=== PATIENT | female | born 1940 | race African-American/Black ===

== ENCOUNTER 2020-06-21 14:36 | Emergency (ER) | payer OTHER ==
[2020-06-21 14:50] VITALS: TEMP 98.3; BMI 23.9
[2020-06-21 15:41] LABS: BASO % 0.7 % (0-2.0); EOS % 0.5 % (0-4.5); HEMATOCRIT 39.5 % (32.4-45.2); HEMOGLOBIN 12.9 GM/dL (10.7-15.3); LYMPH % 31.8 % (8-40); MCH 28.4 pg (25.7-33.7); MCHC 32.6 g/dl (32.0-36.0); MEAN CELL VOLUME 87.1 fl (80-96); MEAN PLT VOLUME 7.5 fl (7.5-11.1); MONO % 7.7 % (3.8-10.2); NEUT % 59.3 % (42.8-82.8); PLATELET COUNT 319 K/MM3 (134-434); RBC 4.53 M/mm3 (3.60-5.2); RDW 13.7 % (11.6-15.6); WHITE BLOOD COUNT 5.6 K/mm3 (4.0-10.0)
[2020-06-21 15:56] LABS: CHLORIDE 101 mmol/L (98-107); SODIUM 137 mmol/L (136-145)
[2020-06-21 15:58] LABS: ANION GAP 9 MMOL/L (8-16); BLOOD UREA NITROGEN 9.3 mg/dL (7-18); CALCIUM 9.5 mg/dL (8.5-10.1); CO2 28 mmol/L (21-32); GLUCOSE,RANDOM 108 mg/dL (74-106)
[2020-06-21 16:01] LABS: CREATININE 0.7 mg/dL (0.55-1.3); SGOT/AST 18 U/L (15-37); SGPT/ALT 18 U/L (13-61)
[2020-06-21 16:03] LABS: BILIRUBIN,TOTAL 0.3 mg/dL (0.2-1); TOT PROT 7.8 g/dl (6.4-8.2)
[2020-06-21 16:04] LABS: ALK PHOS 78 U/L (45-117)
[2020-06-21 17:42] LABS: EPI CELLS 7 /uL (0-25.1); HYALINE CASTS 0 /uL (0-3.1); URINE APPEARANCE CLEAR; URINE BACTERIA 241 /uL (0-1359); URINE BILIRUBIN NEGATIVE (NEGATIVE); URINE COLOR YELLOW; URINE GLUCOSE (UA) NEGATIVE (NEGATIVE); URINE KETONE NEGATIVE (NEGATIVE); URINE LEUK ESTERASE 1+ (NEGATIVE); URINE NITRITE NEGATIVE (NEGATIVE); URINE PROTEIN NEGATIVE (NEGATIVE); URINE RBC 1 /uL (0-23.9); URINE UROBILINOGEN 0.2 mg/dL (0.2-1.0); URINE WBC 22 /uL (0-25.8)
[2020-06-21 18:56] VITALS: BP 155/74; PULSE 80
== END 2020-06-21 20:59 | disposition home or self-care (01) ==
LOC: JER 14:36
DX: R42 Dizziness and giddiness (principal); R00.2 Palpitations
CPT/HCPCS: 36415; 71045-TC-FY; 80053; 81003; 82550; 82553; 84484; 85025; 87086; 93005; 93010; 99285-25

== ENCOUNTER 2023-07-05 11:16 | Emergency (ER) | payer OTHER ==
[2023-07-05 11:43] VITALS: BMI 23.1
[2023-07-05 11:56] VITALS: TEMP 99
[2023-07-05] MEDS ORDERED: ONDANSETRON 4 MG/2 ML VIAL ONE (12:02)
[2023-07-05] MEDS: LACTATED RINGERS SOLUTION 1000 ML INFUS.BAG IV ONE (12:15)
[2023-07-05] MEDS: ONDANSETRON 4 MG/2 ML VIAL IVPUSH ONE (12:15)
[2023-07-05 12:33] LABS: VENOUS BASE EXCESS -2.6 mmol/L (-2-2); VENOUS O2 SATURATION 64.3 % (70-80); VENOUS PCO2 47.2 mmHg (38-52); VENOUS PH 7.319 (7.310-7.410)
[2023-07-05 12:36] LABS: BASO % 0.3 % (0-2.0); EOS % 0.1 % (0-4.5); LYMPH % 14.3 % (8-40); MCH 28.1 pg (25.7-33.7); MCHC 32.4 g/dl (32.0-36.0); MEAN CELL VOLUME 86.8 fl (80-96); MEAN PLT VOLUME 7.1 fl (7.5-11.1); MONO % 6.2 % (3.8-10.2); NEUT % 79.1 % (42.8-82.8); PLATELET COUNT 306 10^3/uL (134-434); RBC 4.26 M/mm3 (3.60-5.2); RDW 14.4 % (11.6-15.6); WHITE BLOOD COUNT 10.6 K/mm3 (4.0-10.0)
[2023-07-05 12:56] LABS: POTASSIUM 3.8 mmol/L (3.5-5.1)
[2023-07-05 12:58] LABS: ALBUMIN 3.4 g/dl (3.4-5.0); BLOOD UREA NITROGEN 14.2 mg/dL (7-18); CALCIUM 9.5 mg/dL (8.5-10.1)
[2023-07-05 13:01] LABS: CREATININE 0.9 mg/dL (0.55-1.3)
[2023-07-05 13:03] LABS: BILIRUBIN,TOTAL 0.3 mg/dL (0.2-1); TOT PROT 6.8 g/dl (6.4-8.2)
[2023-07-05 14:53] VITALS: BP 107/54; PULSE 82; RESP 22
== END 2023-07-05 15:54 | disposition left against medical advice (07) ==
LOC: JER 11:16
PROC: 3E030GC Introduction of Other Therapeutic Substance into Peripheral Vein, Open Approach (ICD-10-PCS; principal; 2023-07-05)
DX: R11.2 Nausea with vomiting, unspecified (principal); Z20.822 Contact with and (suspected) exposure to COVID-19
CPT/HCPCS: 0241U-QW; 36415; 71045-TC-FY; 80053; 82803; 82962; 83735; 83880; 84484; 85025; 93005; 93010; 99285-25